=== PATIENT | female | born 1990 | race Caucasian/White ===

== ENCOUNTER → 2018-01-08 11:43 | Outpatient (CLI) | payer BC, SELFPAY ==
[2018-01-14 11:30] LABS: HPV Reflexed? NOT INDICATED
== END ==
PROVIDERS: Visit Provider Obstetrics & Gynecology
DX: Z12.4 Encounter for screening for malignant neoplasm of cervix (principal)
CPT/HCPCS: 88175; G0145

== ENCOUNTER → 2020-04-06 09:27 | Outpatient (CLI) | payer BC, SELFPAY ==
[2016-09-17 09:21] VITALS: BMI 27.4
[2020-04-06 11:49] LABS: Thyroid Stim Hormone (TSH) 1.16 uIU/mL (0.358-3.74)
== END ==
PROVIDERS: Visit Provider Obstetrics & Gynecology
DX: E04.9 Nontoxic goiter, unspecified (principal)
CPT/HCPCS: 36415; 84443

== ENCOUNTER → 2021-07-21 15:58 | Outpatient (CLI) | payer BC, SELFPAY ==
[2021-07-26 16:07] LABS: HPV APTIMA, High Risk Negative (Negative)
== END ==
PROVIDERS: Visit Provider Obstetrics & Gynecology
DX: Z12.4 Encounter for screening for malignant neoplasm of cervix (principal)
CPT/HCPCS: 87624; 88175; G0145

== ENCOUNTER → 2023-04-17 | Outpatient (CLI) | payer OTHER, SELFPAY ==
--- NOTE | 2023-04-17 09:15 | BI_ITS ---
MAMMOGRAPHY - BILATERAL DIAGNOSTIC REASON FOR EXAM: Female, 32 years old. Bilateral breast lumps in the upper outer quadrants. PERTINENT HISTORY: Non-contributory. TECHNIQUE: Digital bilateral breast ny (3D mammographic acquisition) in the CC and MLO projections. 2-D mediolateral oblique (MLO) and craniocaudad (CC) views of both breasts were obtained. CAD: Full Field Digital Mammography with Computer Added Detection was performed. COMPARISON: None. Baseline examination. FINDINGS: Breast Composition: The breasts are extremely dense, which lowers the sensitivity of mammography. There is a 2.4 cm x 2.1 cm well-defined nodule in the upper lateral aspect of the left breast. This corresponds with the palpable pea. Punctate calcifications are seen within it and this most likely represents a fibroadenoma. Coarse calcifications are seen in the slightly inferior lateral aspect of the left breast suggestive of a calcifying fibroadenoma. Targeted correlation with ultrasound is recommended for further evaluation. No other significant abnormalities are identified. BI/DIAG MAMM W/CAD, BILAT IMPRESSION: 2.4 cm x 2.1 cm well-defined nodule in the upper outer aspect of the left breast with calcifications. Correlation with ultrasound is recommended. ASSESSMENT CATEGORY: BIRADS Category 0: Incomplete. Need additional imaging evaluation. A letter regarding these results will be sent to the patient by the facility within 30 days. Approximately 10% of breast cancers are not detected by mammography. A normal mammogram should not delay biopsy of a clinically suspicious abnormality. Electronically Signed: Jerson Zhu MD at 10:13 EDT ,
--- NOTE | 2023-04-17 09:15 | US_ITS ---
STUDY: ULTRASOUND BREAST - RIGHT REASON FOR EXAM: Female, 32 years old. Palpable lump in the right breast. TECHNIQUE: Axial and longitudinal images of the RIGHT breast were performed with a high resolution ultrasound transducer. # OF IMAGES: 36 COMPARISON: Comparison is made with prior mammogram done earlier today. FINDINGS: RIGHT Breast: The palpable lump corresponds to a 2.4 cm x 2.3 cm x 1 cm well-defined nodule at the 10:00 position of the breast or 6 times. Calcification seen within it. This most likely represents a fibroadenoma. This corresponds to the mammographic findings. IMPRESSION: 2.4 cm x 2.3 cm x 1 cm well-defined nodule with a calcification at the 10:00 position of the breast at 6 cm from the nipple. This most likely represents a fibroadenoma. Tissue diagnosis should be considered. ASSESSMENT CATEGORY: BIRADS Category 4: Suspicious - Biopsy Should Be Considered. A letter regarding these results will be sent to the patient by the facility within 30 days. Electronically Signed: Jerson Zhu MD at 14:54 EDT , STUDY: ULTRASOUND BREAST - LEFT REASON FOR EXAM: Female, 32 years old. Palpable lump left breast. TECHNIQUE: Axial and longitudinal images of the LEFT breast were performed with a high resolution ultrasound transducer. # OF IMAGES: 36 COMPARISON: Comparison is made with prior mammogram done earlier in the day. FINDINGS: LEFT Breast: The upper-outer quadrant of the breast was examined with ultrasound. There is a 1.4 cm x 1.8 cm x 1 cm well-defined hypoechoic solid nodule at the 2:00 position of the breast at 6 cm from nipple. This most likely represents a fibroadenoma. Tissue diagnosis should be considered. US/Breast Limited Unilateral IMPRESSION: 1.4 cm x 1.8 cm x 1 cm well-defined hypoechoic solid nodule at the 2:00 position of the breast at 6 cm from the nipple. Biopsy should be considered. ASSESSMENT CATEGORY: BIRADS Category 4: Suspicious - Biopsy Should Be Considered. A letter regarding these results will be sent to the patient by the facility within 30 days. Electronically Signed: Jerson Zhu MD at 14:55 EDT ,
== END | disposition home or self-care (01) ==
PROVIDERS: PCP Family Medicine; Referring Provider Nurse Practitioner Women's Health; Visit Provider Nurse Practitioner Women's Health
DX: N63.21 Unspecified lump in the left breast, upper outer quadrant (principal)
CPT/HCPCS: 76642; 77062; 77066; G0279

== ENCOUNTER → 2023-04-25 | Outpatient (CLI) | payer OTHER, SELFPAY ==
--- NOTE | 2023-04-25 | BRBX_PTH ---
PATIENT: MAGI HUYNH LOC: [facility] U#:[id number] AGE/SX: 32/F ROOM: RE04/25/[address]: Dr. Peggy Dupont MD : 1990 BED: DIS: 04/25/2023 SPEC #: [id number] RECD: 04/25/23 13:16 STATUS: AMY GONZÁLEZ #: [id number] LIZZY: 04/25/23 00:[address]: Peggy Dupont DEPT: SURGICAL PATHOLOGY RECD BY: Joe Stevenson ENTERED: 04/25/23 13:16 SP TYPE: BREAST BX OT DR: Dr. Richard Gunderson MD Tissues: Right breast, NOS Procedures: Surgery Specimen Level IV HEADER OPERATION: Biopsy right breast nodule PRE-OP DIAGNOSIS: Right breast nodule TISSUE SUBMITTED: Right breast tissue 9 o'clock, 6.0 cm MICROSCOPIC DIAGNOSIS Right breast at 9 o'clock, needle core biopsy: Collagenized fibroadenoma. Mild fibrocystic change. Focal intraductal hyperplasia without atypia. No evidence of malignancy. AM:abdi 04/26/2023 MICROSCOPIC DESCRIPTION Slides are reviewed. GROSS DESCRIPTION Received in fixative is one container labeled with the patient's name and designated right breast. The specimen consists of multiple irregular and elongated fragments of mancia tissue that in aggregate measure 1.5 x 1.0 x 0.2 cm. The specimen is totally submitted in one cassette. / AM:abdi 04/25/2023 TC:5 CPT: 70593
== END | disposition home or self-care (01) ==
LOC: LABSPEC 12:46
PROVIDERS: PCP Family Medicine; Referring Provider Surgery; Visit Provider Surgery
DX: N63.10 Unspecified lump in the right breast, unspecified quadrant (principal)
CPT/HCPCS: 88305